=== PATIENT | female | born 1960 | race Caucasian/White ===

== ENCOUNTER 2024-01-16 20:47 | Observation (INO) | payer MEDICARE, OTHER ==
--- NOTE | 2024-01-16 21:22 | ED ---
Chest Pain HPI - General Chief Complaint: Chest Pain Stated Complaint: Chest pain Time Seen by Provider: 01/16/24 20:52 Source: patient Mode of arrival: EMS Limitations: no limitations - History of Present Illness Initial Comments: This patient is a 63-year-old woman who presents to have evaluation of left- sided chest pain that came on this afternoon. Patient states it is an aching,, and that it was worse when she walked up the stairs. She denies associated symptoms, no dyspnea, diaphoresis, nausea or vomiting. Patient was given nitroglycerin but states that it did not really change the pain much. MD Complaint: chest pain -: hour(s) Onset: during rest Pain Location: left chest Pain Radiation: neck Severity: moderate Quality: aching Consistency: constant Improves With: nothing Worsens With: exertion Treatments Prior to Arrival: none - Related Data Home Medications Medication Instructions Recorded Confirmed Calcium/Magnesium/Zinc/Vitamin D 1 tab PO TID PRN 01/17/24 01/17/24 334/134/5mg Fluticasone/Umeclidin/Vilanter 1 puff INHALATION RT-DAILY 01/17/24 01/17/24 [Trelegy Ellipta 100-62.5-25] Melatonin 10 mg PO HS 01/17/24 01/17/24 Naproxen Sodium [Aleve] 440 mg PO BID 01/17/24 01/17/24 Pregabalin [Lyrica] 300 mg PO BID 01/17/24 01/17/24 busPIRone HCl [Buspar] 10 mg PO TID 01/17/24 01/17/24 Previous Rx's Medication Instructions Recorded Aspirin 81 mg PO DAILY #30 tab 01/18/24 Atorvastatin [Lipitor] 40 mg PO HS #30 tab 01/18/24 Azithromycin [Zithromax] 0 mg PO DIRECTED #6 tab 01/18/24 Metoprolol Tartrate [Lopressor] 25 mg PO BID #60 tab 01/18/24 Allergies Allergy/AdvReac Type Severity Reaction Status Date / Time Sulfa (Sulfonamide Allergy Anaphylaxis Verified 01/23/24 16:15 Antibiotics) codeine AdvReac Nausea & Verified 01/23/24 16:15 Vomiting Review of Systems ROS Statement: Those systems with pertinent positive or pertinent negative responses have been documented in the HPI. ROS Other: All systems not noted in ROS Statement are negative. Constitutional: Denies: fever, chills, weakness Respiratory: Denies: cough, dyspnea Cardiovascular: Reports: chest pain. Denies: palpitations, orthopnea, edema, syncope Gastrointestinal: Denies: abdominal pain, nausea, vomiting, diarrhea Genitourinary: Denies: dysuria, hematuria Musculoskeletal: Denies: back pain Skin: Denies: rash Neurological: Denies: headache, weakness, numbness EKG Findings - EKG Results: EKG: interpreted by ERMD, sinus rhythm, normal axis, normal QRS, normal ST/T EKG shows: tachycardia (Rate 104 bpm) Past Medical History Past Medical History: COPD, Myocardial Infarction ([place]), Renal Disease History of Any Multi-Drug Resistant Organisms: MRSA Past Surgical History: Tubal Ligation Additional Past Surgical History / Comment(s): laminectomy Past Psychological History: Bipolar Smoking Status: Former smoker Past Alcohol Use History: None Reported Past Drug Use History: IV Drug Use - Past Family History Mother Family Medical History: Cancer Additional Family Medical History / Comment(s): colon cancer Father Family Medical History: Congestive Heart Failure (CHF) Additional Family Medical History / Comment(s): skin Ca Brother(s) Family Medical History: Myocardial Infarction (DE) Additional Family Medical History / Comment(s): 1 brother of DE. 1 brother current liver cancer General Exam Limitations: no limitations General appearance: alert, in no apparent distress Head exam: Present: atraumatic, normocephalic Eye exam: Present: normal appearance. Absent: scleral icterus, conjunctival injection Neck exam: Present: normal inspection Respiratory exam: Present: normal lung sounds bilaterally, chest wall tenderness. Absent: respiratory distress, wheezes, rales, rhonchi, stridor, accessory muscle use Cardiovascular Exam: Present: regular rate, normal rhythm, normal heart sounds. Absent: systolic murmur, diastolic murmur, rubs, gallop GI/Abdominal exam: Present: soft. Absent: distended, tenderness, guarding, rebound, rigid, mass Extremities exam: Present: normal inspection, normal capillary refill. Absent: pedal edema, calf tenderness Back exam: Present: normal inspection. Absent: CVA tenderness (R), CVA tenderness (L) Neurological exam: Present: alert Skin exam: Present: warm, dry, intact, normal color. Absent: rash Course Vital Signs 11/02/24 11/02/24 11/02/24 20:48 22:00 23:52 Temperature 98.9 F Pulse Rate 105 H 94 90 Respiratory 18 18 17 Rate Blood Pressure 138/97 128/72 136/92 O2 Sat by Pulse 100 98 95 Oximetry Chest Pain MDM - MDM The patient had chest x-ray that I interpreted as negative for acute infiltrate, pneumothorax, congestive heart failure. Was pt. sent in by a medical professional or institution (, ANTONI, WAREHOUSE CLERK, urgent care, hospital, or halfway...) When possible be specific @ -[No] Did you speak to anyone other than the patient for history (EMS, parent, family, police, friend...)? What history was obtained from this source @ -[No] Did you review nursing and triage notes (agree or disagree)? Why? @ -[I reviewed and agree with nursing and triage notes] Were old charts reviewed (outside hosp., previous admission, EMS record, old EKG, old radiological studies, urgent care reports/EKG's, halfway records)? Report findings @ -[No old charts were reviewed] Differential Diagnosis (chest pain, altered mental status, abdominal pain women, abdominal pain men, vaginal bleeding, weakness, fever, dyspnea, syncope, headache, dizziness, GI bleed, back pain, seizure, CVA, palpatations, mental health, musculoskeletal)? @ -[Differential Chest Pain: Stable Angina, Unstable Angina, STEMI, NSTEMI Aortic Dissection, Pneumothorax, Musculoskeletal, Esophageal Spasm GERD, Cholecystitis, Pancreatitis, Zoster, this is not meant to be an all-inclusive list. EKG interpreted by me (3pts min.). @ -[I interpreted as above] X-rays interpreted by me (1pt min.). @ -[I interpreted as above CT interpreted by me (1pt min.). @ -[None done] U/S interpreted by me (1pt. min.). @ -[None done] What testing was considered but not performed or refused? (CT, X-rays, U/S, labs)? Why? @ -[None] What meds were considered but not given or refused? Why? @ -[None] Did you discuss the management of the patient with other professionals (professionals i.e. , PA, WAREHOUSE CLERK, lab, RT, psych nurse, director social service, hearing health technician, teacher, correctional officer lieutenant, correctional case manager)? Give summary @ -[Case discussed with admitting physician and treatment recommendations incorporated Was smoking cessation discussed for >3mins.? @ -[No] Was critical care preformed (if so, how long)? @ -[No] Were there social determinants of health that impacted care today? How? (Homelessness, low income, unemployed, alcoholism, drug addiction, transportation, low edu. Level, literacy, decrease access to med. care, long-term, rehab)? @ -[No] Was there de-escalation of care discussed even if they declined (Discuss DNR or withdrawal of care, Hospice)? DNR status @ -[No] What co-morbidities impacted this encounter? (DM, HTN, Smoking, COPD, CAD, Cancer, CVA, ARF, Chemo, Hep., AIDS, mental health diagnosis, sleep apnea, morbid obesity)? @ -[None] Was patient admitted / discharged? Hospital course, mention meds given and route, prescriptions, significant lab abnormalities, going to OR and other pertinent info. @ -[Patient is 63-year-old woman here to have evaluation for chest pain. Given the nature of the pain, will admit patient to have serial cardiac enzymes, telemetry monitoring, cardiology consultation Undiagnosed new problem with uncertain prognosis? @ -[No] Drug Therapy requiring intensive monitoring for toxicity (Heparin, Nitro, Insulin, Cardizem)? @ -[No] Were any procedures done? @ -[No] Diagnosis/symptom? @ -[Acute chest pain Acute, or Chronic, or Acute on Chronic? @ -[Acute Uncomplicated (without systemic symptoms) or Complicated (systemic symptoms)? @ -[Uncomplicated Side effects of treatment? @ -[No] Exacerbation, Progression, or Severe Exacerbation? @ -[No] Poses a threat to life or bodily function? How? (Chest pain, [place], [place], pneumonia, PE, COPD, DKA, ARF, appy, cholecystitis, CVA, Diverticulitis, Homicidal, Suicidal, threat to staff... and all critical care pts) @ -[Possible, requires further cardiac evaluation to determine Disposition Clinical Impression: Chest pain Disposition: ADMITTED IP TO THIS HOSP Condition: Good Is patient prescribed a controlled substance at d/c from ED?: No
[2024-01-16 21:50] LABS: Basophils % (A) 0 %; Eosinophils # (A) 0.4 k/uL (0-0.7); Eosinophils % (A) 4 %; HCT 32.7 % (34.0-46.0); HGB 11.3 gm/dL (11.4-16.0); Lymphocytes # (A) 3.8 k/uL (1.0-4.8); Lymphocytes % (A) 40 %; MCH 33.1 pg (25.0-35.0); MCHC 34.4 g/dL (31.0-37.0); MCV 96.1 fL (80.0-100.0); Monocytes # (A) 0.7 k/uL (0-1.0); Monocytes % (A) 7 %; Neutrophils # (A) 4.3 k/uL (1.3-7.7); Neutrophils % (A) 46 %; Platelet Count 318 k/uL (150-450); RDW 13.7 % (11.5-15.5); WBC 9.5 k/uL (3.8-10.6)
[2024-01-16 22:01] LABS: ALT 25 U/L (4-34); AST 53 U/L (14-36); African American GFR (CKD) >90 (>60 ml/min/1.73 sqM); Albumin 3.5 g/dL (3.5-5.0); Alkaline Phosphatase 106 U/L (38-126); Anion Gap 4 mmol/L; Blood Urea Nitrogen 22 mg/dL (7-17); Carbon Dioxide 23 mmol/L (22-30); Chloride 114 mmol/L (98-107); Glucose 86 mg/dL (74-99); Magnesium 1.9 mg/dL (1.6-2.3); Non-African American GFR(CKD) >90 (>60 ml/min/1.73 sqM); Potassium 4.3 mmol/L (3.5-5.1); Sodium 141 mmol/L (137-145); Total Bilirubin 0.5 mg/dL (0.2-1.3)
--- NOTE | 2024-01-16 22:02 | XR ---
EXAMINATION TYPE: XR chest 2V DATE OF EXAM: 01/16/2024 9:41 PM COMPARISON: Chest radiographs from none CLINICAL INDICATION: Female, 63 years old with history of Chest Pain; [facility] TECHNIQUE: XR chest 2V Frontal and lateral views of the chest. FINDINGS: Lungs/Pleura: There is flattening of the diaphragm with increased lucency of the lungs. No evidence o f pneumothorax, pleural effusion or focal consolidation. Pulmonary vascularity: Unremarkable. Heart/mediastinum: Cardiomediastinal silhouette is unremarkable. Musculoskeletal: No acute osseous pathology. Other findings: None IMPRESSION: 1. No acute cardiopulmonary disease process. 2. COPD changes. [facility], , 01/16/2024 9:59 PM
[2024-01-16 22:05] LABS: INR 0.9 (<1.2); Partial Thromboplastin Time 22.7 sec (22.0-30.0); Prothrombin Time 9.8 sec (10.0-12.5)
[2024-01-16] MEDS: ASPIRIN 81 MG PO STA (22:20)
--- NOTE | 2024-01-16 23:24 | CT ---
EXAMINATION TYPE: CT chest angio for PE DATE OF EXAM: 01/16/2024 COMPARISON: NONE HISTORY: CHEST PAIN POSSIBLE PE CT DLP: 289.3 mGycm. Automated Exposure Control for Dose Reduction was Utilized. CONTRAST: CTA scan of the thorax is performed with IV Contrast, patient injected with 100 mL of Isovue 370, pul monary embolism protocol. MIP Images are created on CT scanner and reviewed. FINDINGS: LUNGS: Thin-walled cystic change in the periphery of the bilateral upper lobes is present. Some perip heral foci of groundglass opacity in the anterior inferior right upper lobe are present for reference axial image 60. [id number] biapical pleural/parenchymal scarring extending posteriorly. The lo wer lobes are clear. No pleural effusion or pneumothorax seen bilaterally MEDIASTINUM: There is satisfactory enhancement of the pulmonary artery and its branches, there is no CT evidence for pulmonary embolism. Enhancement of the thoracic aorta without aneurysm or dissection. No cardiomegaly or pericardial effusion. Moderate-sized hiatal hernia is noted. OTHER: Some scattered colonic diverticula. Scoliotic curvature to the thoracolumbar spine with multil evel spurring and disc space narrowing. Small fat-containing umbilical hernia. IMPRESSION: 1. No CT evidence for acute pulmonary embolism. 2. Chronic parenchymal changes of the bilateral upper lobes with some peripheral areas of groundglass opacity could reflect developing acute infiltrate in the anterior inferior right upper lobe. Correla te clinically. 3. Moderate-sized hiatal hernia. [facility], , 01/16/2024 11:21 PM
[2024-01-16] MEDS ORDERED: NITROGLYCERIN SL TABS 0.4 MG TAB SUBLINGUAL PRN (23:29)
[2024-01-17 09:04] LABS: Chol/HDL Ratio 2.98 Ratio; LDL Cholesterol,Calculated 82.2 mg/dL (0.0-131.0)
[2024-01-17] MEDS ORDERED: IPRATROPIUM-ALBUTEROL 3 ML NEB INHALATION PRN (09:50)
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
[2024-01-17] MEDS: ASPIRIN 325 MG TAB PO SCH (11:54)
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
[2024-01-17] MEDS: METOPROLOL TARTRATE 25 MG TAB PO SCH (13:18)
[2024-01-17] MEDS ORDERED: BUTALB/APAP/CAFF 50-325-40MG TAB PO PRN (16:10)
[2024-01-17] MEDS: PREGABALIN 100 MG CAP PO SCH (20:27)
[2024-01-17] MEDS: ATORVASTATIN 40 MG TAB PO SCH (20:27)
[2024-01-18] MEDS ORDERED: DOBUTamine DRIP for NUC MED 500 MG/250 ML BAG IV ONE (08:00)
[2024-01-18] MEDS ORDERED: DOBUTamine DRIP for NUC MED 500 MG in DEXTROSE/WATER 1 250ML.BAG IV PRN (08:04)
[2024-01-18] MEDS: ASPIRIN 81 MG PO SCH (09:02)
--- NOTE | 2024-01-18 10:43 | P.PN ---
Subjective HISTORY OF PRESENT ILLNESS: 01/17/2024 This is a 63-year-old female patient with a past medical history significant for CAD documented on heart catheterization was performed in [facility] 10 years ago with no stenting was needed at that time as well as hypertension and dyslipidemia and history of drug abuse in the past and history of smoking as well the patient currently is residing at [place] and she was brought for further evaluation of chest discomfort. She has been experiencing shortness of breath started about 6-month ago and has not changed but lately and for the last several days she has been experiencing discomfort in the chest. The discomfort is in the mid and left side of the chest as a dull feeling with no radiation to the arms or neck or shoulders or back appears to be mostly with exertion and better with resting but sometimes not exertional related has not progressed in terms of intensity and frequency compared to before and with no associated symptoms of dizziness or lightheadedness or any feeling of heart racing or fluttering or presyncope or syncope or edema in the lower extremities. She underwent further evaluation including an EKG showing sinus mechanism with nonspecific changes and troponin came to be unremarkable and the rest of the blood work came in to be unremarkable the pressure has been consistent with stage I hypertension. She has not been taking any medications as an outpatient. The physical examination is remarkable for regular rhythm with a soft systolic murmur at the right and left upper sternal border with clear breathing sounds bilaterally and no edema was noted in the lower extremities 01/18/2024 Patient examined this morning at the bedside. Patient currently denies any chest pain or pressure. She denies any shortness of breath. Patient's vital signs are stable. Telemetry reveals sinus mechanism. PHYSICAL EXAM: VITAL SIGNS: Reviewed. GENERAL: Well-developed in no acute distress. NECK: Supple. No JVD or thyromegaly LUNGS: Respirations even and unlabored. Lungs essentially clear to auscultation bilaterally. HEART: Regular rate and rhythm. S1 and S2 heard. EXTREMITIES: Normal range of motion. No clubbing or cyanosis. Peripheral pulses intact. No lower extremity edema ASSESSMENT: Chest pain, ACS ruled out Coronary artery disease, details unknown Chronic back pain History of IV drug abuse Former nicotine dependence History of ADD, anxiety, depression, bipolar disorder, and PTSD PLAN: 2D echo has been ordered. Await results. Patient states she is unable to walk on a treadmill due to her back pain. Patient will be switched to dobutamine stress echo this morning Continue current cardiac medications If dobutamine stress echo is negative, patient may be discharged home from a cardiac standpoint Nurse practitioner note has been reviewed by physician. Signing provider agrees with the documented findings, assessment, and plan of care documented by METALLOGRAPHIC TECHNICIAN as a scribe. Objective - Vital Signs Vital signs: Vital Signs Temp 98.1 F 01/18/24 07:00 Pulse 73 01/18/24 07:00 Resp 16 01/18/24 07:00 BP 131/74 01/18/24 07:00 Pulse Ox 100 01/18/24 07:00 FiO2 Intake & Output 01/17/24 01/18/24 01/18/24 18:59 06:59 18:59 Other: # Voids 1 1 - Labs CBC & Chem 7: 01/16/24 20:52 01/16/24 20:52
--- NOTE | 2024-01-18 17:46 | CA ---
Transthoracic Echo Report Name: Julia Parada Age: 63 Gender: F : 1960 Exam Date: 01/18/2024 12:55 Exam Location: [facility] Ht (in): 63 Wt (lb): 150 Ordering Physician: Jd Gresham MD Attending/Referring Phys: Offset Second Press Operator Caitlyn Sanford RDCS Procedure CPT: Indications: Chest Pain Cardiac Hx: Technical Quality: Good Contrast 1: Total Dose (mL): Contrast 2: Total Dose (mL): MEASUREMENTS (Male / Female) Normal Values 2D ECHO LV Diastolic Diameter PLAX 4.2 cm 4.2 - 5.9 / 3.9 - 5.3 cm LV Systolic Diameter PLAX 2.6 cm IVS Diastolic Thickness 0.7 cm 0.6 - 1.0 / 0.6 - 0.9 cm LVPW Diastolic Thickness 0.8 cm 0.6 - 1.0 / 0.6 - 0.9 cm LV Relative Wall Thickness 0.4 LVOT Diameter 1.9 cm Aortic Root Diameter 2.7 cm LV Diastolic Volume MOD BP 76.2 cm??? 67 - 155 / 56 - 104 cm??? LV Systolic Volume MOD BP 33.9 cm??? 22 - 58 / 19 - 49 cm??? LV Ejection Fraction MOD BP 55.5 % >= 55 % LV Cardiac Index MOD BP 2047.9 cm???/min???m??? LV Diastolic Volume MOD 4C 81.3 cm??? LV Systolic Volume MOD 4C 33.2 cm??? LV Ejection Fraction MOD 4C 59.2 % LV Cardiac Index MOD 4C 2329.2 cm???/min???m??? LV Diastolic Length 4C 7.5 cm LV Systolic Length 4C 6.1 cm LV Diastolic Volume MOD 2C 69.4 cm??? LV Systolic Volume MOD 2C 33.0 cm??? LV Ejection Fraction MOD 2C 52.5 % LV Cardiac Index MOD 2C 1765.3 cm???/min???m??? LV Diastolic Length 2C 7.8 cm LV Systolic Length 2C 6.5 cm Ascending Aorta Diameter 2.9 cm DOPPLER AV Peak Velocity 144.0 cm/s AV Peak Gradient 8.3 mmHg AV Mean Velocity 102.3 cm/s AV Mean Gradient 4.6 mmHg AV Velocity Time Integral 29.7 cm LVOT Peak Velocity 119.3 cm/s LVOT Peak Gradient 5.7 mmHg LVOT Velocity Time Integral 22.1 cm LVOT Stroke Volume 62.4 cm??? LVOT Stroke Volume Index 36.4 ml/m??? LVOT Cardiac Index 3019.7 cm???/min???m??? AV Area Cont Eq vti 2.1 cm??? AV Area Cont Eq pk 2.3 cm??? Mitral E Point Velocity 84.8 cm/s Mitral A Point Velocity 103.1 cm/s Mitral E to A Ratio 0.8 MV Deceleration Time 141.8 ms MV E' Velocity 6.9 cm/s Mitral E to MV E' Ratio 12.3 TR Peak Velocity 238.4 cm/s TR Peak Gradient 22.7 mmHg Right Atrial Pressure 5.0 mmHg Pulmonary Artery Systolic Pressu 27.7 mmHg Right Ventricular Systolic Press 27.7 mmHg FINDINGS Left Ventricle Left ventricular ejection fraction is estimated at 55-60 %. Left ventricular cavity size normal. Left ventricular wall thickness normal. No obvious regional wall motion abnormalities. Right Ventricle Normal right ventricular size and function. Right ventricular systolic pressure within normal limits. Right Atrium Normal right atrial size. Left Atrium Normal left atrial size. Mitral Valve Structurally normal mitral valve. Mitral annular calcification. No evidence for mitral valve prolapse. No mitral stenosis. Mild mitral regurgitation. Aortic Valve Aortic valve not well visualized. No aortic valve stenosis or regurgitation. Tricuspid Valve Structurally normal tricuspid valve. No tricuspid stenosis. Mild tricuspid regurgitation. Pulmonic Valve Pulmonic valve not well visualized. No pulmonic stenosis. No pulmonic regurgitation. Pericardium No pericardial effusion. Aorta Normal size aortic root and proximal ascending aorta. CONCLUSIONS Normal LV function Mild mitral regurgitation Previewed by: Dr. Jadiel Daiz MD (Electronically Signed) Final Date: 18 January 2024 17:45
--- NOTE | 2024-01-18 17:50 | CA ---
Dobutamine Stress Echocardiogram Report Julia Parada Age: 63 Gender: F : 1960 Exam Date: 01/18/2024 12:30 Exam Location: [facility] Ordering Physician: Dayanara Sawyer Referring Physician: [id number] Slicing Machine Tender: Napoleon Priest Technologist: Ht (in): 63 Wt (lb): 150 Procedure CPT: Indication: CP ICD-9 Codes: Rhythm: Patient History: Cardiac Medications: SEE CHART Medications in past 24 hours: Contrast: N/A Total Dose (mL): NA Stress Results Protocol: Dobutamine Peak Dose (???g/kg/min): 40 Duration (min:sec): Atropine:(mg) None Target HR: 132 Double Product: [id number] Resting HR: 81 Resting BP: 107 / 75 Peak HR: 136 Peak BP: 143 / 49 Max Predicted HR: 155 88 % Max Predicted HR Stress Summary: BP Response: Reason for Termination: Target HR Cardiac Symptoms: NECK PAIN ECG Analysis Resting EKG: Normal sinus rhythm normal axis normal intervals Stress EKG: Patient was given intravenous dobutamine per protocol without chest pain or diagnostic ST segment depression Arrhythmia: Echo Analysis Base Echo Analysis: Normal left ventricular size wall motion systolic function Low Echo Anaylsis: Normal Peak Echo Analysis: Normal hyperdynamic response Recovery Echo: Normal MEASUREMENTS (Male/Female) Normal Values CONCLUSIONS Technically suboptimal study secondary to poor 2 chamber view Negative dobutamine stress echo Dr. Jadiel Diaz MD (Electronically Signed) Final Date: 18 January 2024 17:50
[2024-01-19 02:55] VITALS: RESP 17
[2024-01-19 07:24] VITALS: BP 115/76; PULSE 65; TEMP 98
--- NOTE | 2024-01-19 08:24 | P.DS ---
Providers Date of admission: 01/16/24 23:31 Attending physician: Nano Pierre Consults: 01/16/24 23:30 Consult Physician Routine Consulting Provider: Kevin Jose Consult Reason/Comments: chest pain Do you want consulting provider notified?: Yes Primary care physician: Stated None Hospital Course: Final Diagnosis Chest pain, ruled out acute coronary syndrome Shortness of breath COPD, mild acute exacerbation history of coronary artery disease History of IV drug use Former smoker Discharge Disposition Patient stable for return to [facility]. Her dobutamine stress echocardiogram was negative. Patient will continue a 5-day course of oral azithromycin. Started on aspirin 81 mg daily as well as atorvastatin 40 mg at at bedtime as well as metoprolol 25 mg p.o. twice a day. Patient states that she is no longer taking Cymbalta this was discontinued on discharge. Patient should establish care with a PCP. Hospital Course History of present illness; patient is 63-year-old lady with past medical history significant COPD, coronary artery disease open in the ER because of chest pain. Patient was sent to ER from [place]. Patient states that she has been noticing that she is getting short of breath for the last 4 days. Shortness of breath is present on exertion, patient states she is having a hard time walking up a flight of stairs. Patient is complaining shortness of breath at rest as well. Patient also started noticing that she was having left-sided chest ache that was constant, radiating down her left arm, not associate with any aggravating or relieving factors. Patient denies any palpitations. Patient is complaining of orthopnea and PND. Because of the chest pressure and shortness of breath, patient presented to the ER. Initial lab work done in the ER showed WBC 9.5, hemoglobin 11.3, platelet count 318, D-dimer 0.96, sodium 141, potassium 4.3, BUN 22, creatinine 0.69, total bilirubin 0.5, troponin 0.012 EKG done in the ER showed heart rate of 104 , no ST segment elevation or depression seen, no T-wave inversions seen. Chest x-ray done in the ER showed no acute cardiopulmonary process. CT chest done showed no evidence of PE Patient admitted to internal medicine service and cardiology consultation. Patient was taken for dobutamine stress echocardiogram which was a technically suboptimal study secondary to poor 2 chamber view resulted as a negative dobutamine stress echo. Echocardiogram reveals any normal LV function with mild mitral regurgitation. Pulm level has been negative x 3. Lipid panel shows triglycerides of 117, cholesterol 159, LDL of 82 and an HDL of 53.40. Patient is no longer having chest pain the time of my evaluation she is complaining of some respiratory symptoms with cough and congestion. She has been afebrile with blood cell count is normal. We will send the patient on 5 days of oral antibiotics to cover for atypical pneumonia and COPD exacerbation. She is stable for return to [place]. Please see medication reconciliation for a list of current medications. Thank you for allowing us to participate in the care of this patient. The impression and plan of care has been dictated by Lisa Carrera, Nurse Practitioner as directed. Dr. Madhav MD I have performed a history and physical examination and medical decision making of this patient, discussed the same with the dictator, and agree with the dictators assessment and plan as written, documented as a scribe. Based on total visit time, I have performed more than 50% of this visit. Patient Condition at Discharge: Good Plan - Discharge Summary New Discharge Prescriptions: New Atorvastatin [Lipitor] 40 mg PO HS #30 tab Azithromycin [Zithromax] 0 mg PO DIRECTED #6 tab Aspirin 81 mg PO DAILY #30 tab Metoprolol Tartrate [Lopressor] 25 mg PO BID #60 tab Continue busPIRone HCl [Buspar] 10 mg PO TID Fluticasone/Umeclidin/Vilanter [Trelegy Ellipta 100-62.5-25] 1 puff INHALATION RT-DAILY Pregabalin [Lyrica] 300 mg PO BID Calcium/Magnesium/Zinc/Vitamin D 334/134/5mg 1 tab PO TID PRN PRN Reason: muscle cramps Melatonin 10 mg PO HS Naproxen Sodium [Aleve] 440 mg PO BID Discontinued DULoxetine HCL [Cymbalta] 30 mg PO HS DULoxetine HCL [Cymbalta] 60 mg PO DAILY Discharge Medication List Calcium/Magnesium/Zinc/Vitamin D 334/134/5mg 1 tab PO TID PRN 01/17/24 [History] Fluticasone/Umeclidin/Vilanter [Trelegy Ellipta 100-62.5-25] 1 puff INHALATION RT-DAILY 01/17/24 [History] Melatonin 10 mg PO HS 01/17/24 [History] Naproxen Sodium [Aleve] 440 mg PO BID 01/17/24 [History] Pregabalin [Lyrica] 300 mg PO BID 01/17/24 [History] busPIRone HCl [Buspar] 10 mg PO TID 01/17/24 [History] Aspirin 81 mg PO DAILY #30 tab 01/18/24 [Rx] Atorvastatin [Lipitor] 40 mg PO HS #30 tab 01/18/24 [Rx] Azithromycin [Zithromax] 0 mg PO DIRECTED #6 tab 01/18/24 [Rx] Metoprolol Tartrate [Lopressor] 25 mg PO BID #60 tab 01/18/24 [Rx] Follow up Appointment(s)/Referral(s): Kevin Jose MD [STAFF PHYSICIAN] - 2 Weeks (Cardiology ) None,Stated [Primary Care Provider] - 1-2 days Patient Instructions/Handouts: Chest Pain (ED) Activity/Diet/Wound Care/Special Instructions: Return to [facility] if stress echo negative. Discharge Disposition: OTHER INSTITUTION NOT DEFINED
--- NOTE | 2024-01-19 08:25 | P.PN ---
Subjective Progress Note Date: 01/18/24 History of present illness; patient is 63-year-old lady with past medical history significant COPD, coronary artery disease open in the ER because of chest pain. Patient was sent to ER from [place]. Patient states that she has been noticing that she is getting short of breath for the last 4 days. S hortness of breath is present on exertion, patient states she is having a hard time walking up a flight of stairs. Patient is complaining shortness of breath at rest as well. Patient also started noticing that she was having left-sided chest ache that was constant, radiating down her left arm, not associate with any aggravating or relieving factors. Patient denies any palpitations. Patient is complaining of orthopnea and PND. Because of the chest pressure and shortness of breath, patient presented to the ER Initial lab work done in the ER showed WBC 9.5, hemoglobin 11.3, platelet count 318, D-dimer 0.96, sodium 141, potassium 4.3, BUN 22, creatinine 0.69, total bilirubin 0.5, troponin 0.012 EKG done in the ER showed heart rate of 104 , no ST segment elevation or depression seen, no T-wave inversions seen. Chest x-ray done in the ER showed no acute cardiopulmonary process CT chest done showed no evidence of PE Patient admitted to internal medicine service 01/18/2024 Patient is eval today resting in the chair. She is currently pending stress echocardiogram. She is not having any chest pain at this time. She would like to return to [place] which should be later on this afternoon when her stress echo results come back, if they are negative. REVIEW OF SYSTEMS: CONSTITUTIONAL: No fever, no malaise, no fatigue. HEENT: No recent visual problems or hearing problems. Denied any sore throat. CARDIOVASCULAR: As mentioned above PULMONARY: As mentioned above GASTROINTESTINAL: No diarrhea, no nausea, no vomiting, no abdominal pain. NEUROLOGICAL: No headaches, no weakness, no numbness. PHYSICAL EXAMINATION: GENERAL: The patient is alert and oriented x3, not in any acute distress. Well developed, well nourished. HEENT: Pupils are round and equally reacting to light. EOMI. No scleral icterus. No conjunctival pallor. Normocephalic, atraumatic. No pharyngeal erythema. No thyromegaly. CARDIOVASCULAR: S1 and S2 present. No murmurs, rubs, or gallops. PULMONARY: Chest is clear to auscultation, no wheezing or crackles. ABDOMEN: Soft, nontender, nondistended, normoactive bowel sounds. No palpable organomegaly. MUSCULOSKELETAL: No joint swelling or deformity. EXTREMITIES: No cyanosis, clubbing, or pedal edema. NEUROLOGICAL: Gross neurological examination did not reveal any focal deficits. SKIN: No rashes. Assessment and plan Chest pain, rule out acute coronary syndrome Shortness of breath COPD history of coronary artery disease Monitor vital signs Monitor CBC Monitor CMP Continue telemetry monitoring Trend troponin D-dimer was elevated, CTA chest was negative for PE Ordered 2D echo Ordered breathing treatments Continue aspirin Consult cardiology Labs and medication were reviewed.. Continue same treatment. Continue with symptomatic treatment. Resume home medication. Monitor labs and vitals. DVT and GI prophylaxis. Further recommendations as per clinical course of the patient Dictation was produced using [employer] dictation software. please excuse any grammatical, word or spelling errors. The impression and plan of care has been dictated by Lisa Carrera, Nurse Practitioner as directed. Dr. Madhav MD I have performed a history and physical examination and medical decision making of this patient, discussed the same with the dictator, and agree with the dictators assessment and plan as written, documented as a scribe. Based on total visit time, I have performed more than 50% of this visit. Objective - Vital Signs Vital signs: Vital Signs Temp 98 F 01/19/24 06:57 Pulse 65 01/19/24 06:57 Resp 17 01/19/24 06:57 BP 115/76 01/19/24 06:57 Pulse Ox 100 01/19/24 06:57 FiO2 Intake & Output 01/18/24 01/19/24 01/19/24 18:59 06:59 18:59 Intake Total 118 Balance 118 Intake: Oral 118 Other: Voiding Method Toilet Toilet # Voids 3 2 - Labs CBC & Chem 7: 01/16/24 20:52 01/16/24 20:52 Assessment and Plan Time with Patient: Less than 30
--- NOTE | 2024-01-19 10:56 | P.PN ---
Subjective HISTORY OF PRESENT ILLNESS: 01/17/2024 This is a 63-year-old female patient with a past medical history significant for CAD documented on heart catheterization was performed in [facility] 10 [facility] ago with no stenting was needed at that time as well as hypertension and dyslipidemia and history of drug abuse in the past and history of smoking as well the patient currently is residing at [place] and she was brought for further evaluation of chest discomfort. She has been experiencing shortness of breath started about 6-month ago and has not changed but lately and for the last several days she has been experiencing discomfort in the chest. The discomfort is in the mid and left side of the chest as a dull feeling with no radiation to the arms or neck or shoulders or back appears to be mostly with exertion and better with resting but sometimes not exertional related has not progressed in terms of intensity and frequency compared to before and with no associated symptoms of dizziness or lightheadedness or any feeling of heart racing or fluttering or presyncope or syncope or edema in the lower extremities. She underwent further evaluation including an EKG showing sinus mechanism with nonspecific changes and troponin came to be unremarkable and the rest of the blood work came in to be unremarkable the pressure has been consistent with stage I hypertension. She has not been taking any medications as an outpatient. The physical examination is remarkable for regular rhythm with a soft systolic murmur at the right and left upper sternal border with clear breathing sounds bilaterally and no edema was noted in the lower extremities 01/18/2024 Patient examined this morning at the bedside. Patient currently denies any chest pain or pressure. She denies any shortness of breath. Patient's vital signs are stable. Telemetry reveals sinus mechanism. 01/19/2024 Patient examined this morning at the bedside. Patient currently denies any chest pain or pressure. She denies shortness of breath. Patient underwent do butamine stress echo yesterday which was negative for ischemia. Echocardiogram completed revealing ejection fraction 55 to 60%, no obvious regional wall motion abnormalities, mild MR, mild TR. PHYSICAL EXAM: VITAL SIGNS: Reviewed. GENERAL: Well-developed in no acute distress. NECK: Supple. No JVD or thyromegaly LUNGS: Respirations even and unlabored. Lungs essentially clear to auscultation bilaterally. HEART: Regular rate and rhythm. S1 and S2 heard. EXTREMITIES: Normal range of motion. No clubbing or cyanosis. Peripheral pulses intact. No lower extremity edema ASSESSMENT: Chest pain, ACS ruled out, status post dobutamine stress echo negative for ischemia Coronary artery disease, details unknown Chronic back pain History of IV drug abuse Former nicotine dependence History of ADD, anxiety, depression, bipolar disorder, and PTSD PLAN: Continue current cardiac medications Patient is cleared for discharge back to [place] today from a cardiac standpoint We will sign off. Please reconsult if needed. Nurse practitioner note has been reviewed by physician. Signing provider agrees with the documented findings, assessment, and plan of care documented by HANDS AND DIAL INSPECTOR as a scribe. Objective - Vital Signs Vital signs: Vital Signs Temp 98 F 01/19/24 06:57 Pulse 65 01/19/24 06:57 Resp 17 01/19/24 06:57 BP 115/76 01/19/24 06:57 Pulse Ox 100 01/19/24 06:57 FiO2 Intake & Output 01/18/24 01/19/24 01/19/24 18:59 06:59 18:59 Intake Total 118 298 Balance 118 298 Intake: Oral 118 298 Other: Voiding Method Toilet Toilet Toilet # Voids 3 2 - Labs CBC & Chem 7: 01/16/24 20:52 01/16/24 20:52
== END 2024-01-19 11:22 | disposition home or self-care (01) ==
LOC: EC 20:47 → 6NMEDSUR 23:31
PROVIDERS: ADMIT Hospitalist; ATTEND Hospitalist
DX: R07.9 Chest pain, unspecified (principal); J44.1 Chronic obstructive pulmonary disease with (acute) exacerbation; I25.10 Atherosclerotic heart disease of native coronary artery without angina pectoris; F31.9 Bipolar disorder, unspecified; F41.0 Panic disorder [episodic paroxysmal anxiety]; F43.10 Post-traumatic stress disorder, unspecified; F90.9 Attention-deficit hyperactivity disorder, unspecified type; G89.29 Other chronic pain; M54.9 Dorsalgia, unspecified; I10 Essential (primary) hypertension; I25.2 Old myocardial infarction; Z87.891 Personal history of nicotine dependence; Z79.82 Long term (current) use of aspirin
CPT/HCPCS: 99285; 36415; 94760; 93005 ×2; 93306; 93351; 85379; 80061; 80053; 83735; 84484 ×2; 85025; 85610; 85730; 71046; 71275; G0378 ×3; J1250; Q9967

== ENCOUNTER 2024-01-23 16:11 | Emergency (ER) | payer MEDICARE, OTHER ==
[2024-01-23 16:16] VITALS: RESP 18; TEMP 98.1
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
[2024-01-23] MEDS: IBUPROFEN 600 MG TAB PO STA (16:58)
--- NOTE | 2024-01-23 17:17 | XR ---
EXAMINATION TYPE: XR ankle complete LT DATE OF EXAM: 01/23/2024 4:47 PM COMPARISON: None available. CLINICAL INDICATION: Female, 63 years old with history of left ankle injury; [facility] TECHNIQUE: XR ankle complete LT; ankle is imaged in frontal, lateral and oblique projections. FINDINGS: Left ankle soft tissue swelling. No acute fracture or dislocation. Well-corticated ossific density ad jacent to the medial malleolus possibly sequelae of prior trauma. Tibiotalar joint and talar dome unr emarkable. No unexpected radiopaque foreign body. IMPRESSION: Left ankle soft tissue swelling without definite radiographic evidence of acute fracture or dislocati on. [facility], , 01/23/2024 5:15 PM
[2024-01-23 18:17] VITALS: BP 135/80; PULSE 79
== END 2024-01-23 18:17 | disposition home or self-care (01) ==
LOC: EC 16:11
DX: S93.402A Sprain of unspecified ligament of left ankle, initial encounter (principal); Z87.891 Personal history of nicotine dependence; Z88.2 Allergy status to sulfonamides; Z88.5 Allergy status to narcotic agent; W10.9XXA Fall (on) (from) unspecified stairs and steps, initial encounter
CPT/HCPCS: 99283